=== PATIENT | male | born 1945 | race Caucasian/White ===

== ENCOUNTER 2016-08-25 03:48 | Inpatient (IN) ==
[2016-08-25] MEDS ORDERED: NS 1,000 ML IV ONE (03:53)
[2016-08-25] MEDS ORDERED: ZOFRAN IV ONE (03:53)
--- NOTE | 2016-08-25 03:58 | PROVIDER DOCUMENTATION ---
HPI-Cardiac General - General Stated Complaint: syncope Time Seen by Provider: 08/25/16 03:51 Source: patient, EMS Allergies/Adverse Reactions: Patient Allergies Allergy/AdvReac Type Severity Reaction Status Date / Time hydrocodone AdvReac NAUSEA Verified 08/25/16 03:56 tramadol AdvReac NAUSEA Verified 08/25/16 03:56 Home Medications: Albuterol [Albuterol Neb] 2.5 mg INH Q4H PRN PRN 02/20/14 Alprazolam [Xanax] 0.5 mg PO BID 02/20/14 Aspirin [[place] Aspirin] 81 mg PO DAILY 02/20/14 Lisinopril [Zestril] 20 mg PO BID 02/20/14 PRAVAstatin [Pravachol] 40 mg PO DAILY 02/20/14 Pantoprazole [Protonix] 40 mg PO DAILY 02/20/14 Tiotropium [place] Inhaler [Spiriva] 18 mcg INH DAILY 02/20/14 Amlodipine Besylate [Norvasc] 2.5 mg DAILY 07/15/15 Clopidogrel Bisulfate [Plavix] 75 mg PO DAILY 08/25/16 - History of Present Illness-Cardiac Nature of Presenting Problem: pt states he had gotten up to use the bathroom and felt nauseous and lightheaded and had an episode of diarrhea then briefly passed out. Ambulance responced and found pt pale, diaphoretic with a low BP and transported pt here. Pt denies any bloody stools/melena. He had felt well when he went to bed. He has never had anything like this happened before. Currently he states he has mild diffuse abdominal cramping. He denies headache, SOB, CP Review of Systems - Adult - REVIEW OF SYSTEMS - ADULT Constitutional: denies: chills, fever Eyes: denies: discharge, decreased vision, blurred vision Ears, Nose, Mouth & Throat: denies: ear discharge, sinus problem, throat pain Cardiovascular: reports: syncope. denies: chest pain, irregular heart rate, palpitations Respiratory: denies: cough, shortness of breath, wheezing Gastrointestinal: reports: see HPI. denies: constipation, rectal bleeding Genitourinary: denies: dysuria, frequency, flank pain Musculoskeletal: denies: back pain Integumentary: denies: rash Neurological: denies: headache/migraines, numbness, paresthesia, slurred speech All Other Systems: Reviewed and Negative Past History - Adult - PAST MEDICAL HISTORY-ADULT Review of Records: reports: Old Records Reviewed, Nursing Assessment Review, Medications Reviewed, Social history reviewed & non-contributory. Major Childhood Illnesses: reports: history unknown Cardiovascular: reports: CAD, HTN, hyperlipidemia, MA Respiratory: reports: COPD Gastrointestinal: reports: denies history Obstetrical/Gynecological: reports: denies history Genitourinary: reports: denies history Musculoskeletal: reports: denies history Neurological: reports: denies history Psychiatric: reports: denies history Endocrine/Immune: reports: denies history Other Conditions: reports: denies history - PRIOR SURGERIES/PROCEDURES Surgical/Procedure History: reports: appendectomy - PRIOR HOSPITALIZATIONS Prior Hospitalizations: reports: none - IMMUNIZATION STATUS Childhood Immunizations: See Nurse Assessment Flu Vaccine: See Nurse Assessment - FAMILY HISTORY Family History: reviewed, not pertinent Physical Exam-General - PHYSICAL EXAM-ADULT Initial Vital Signs Reviewed: Yes - CONSTITUTIONAL General Appearance: alert, no apparent distress - EYES Eyes: pink conjunctivae. negative: scleral icterus - HEAD, EARS, NOSE, MOUTH & THROAT HENMT: normocephalic/atraumatic, pharynx normal - NECK Neck: non-tender, full range of motion, supple, normal inspection - RESPIRATORY Respiratory: chest non-tender, lungs clear, normal breath sounds, no pleuratic chest pain, no respiratory distress, no accessory muscle use - CARDIOVASCULAR Cardiovascular: regular rate, rhythm, no edema, no murmur - GASTROINTESTINAL (ABDOMEN) Abdominal Exam: normal bowel sounds, non tender, soft, no organomegaly, no pulsatile mass - MUSCULOSKELETAL Back Exam: normal inspection, no CVA tenderness, no vertebral tenderness Extremity: normal range of motion, non-tender, normal inspection, no pedal edema , no calf tenderness - SKIN Integumentary: diaphoresis, pallor - NEUROLOGIC Neurologic: alum mixer II-XII nml as tested, grossly normal, no motor/sensory deficits - PSYCHIATRIC Psych/Mental Status: normal mood/affect, normal thought content, normal thought process, oriented x 3 Progress - PLAN OF CARE/RESULTS Progress/Plan/Lab Results: Laboratory Tests 08/25/16 08/25/16 08/25/16 03:50 03:50 03:50 WBC 11.85 H RBC 5.19 Hgb 15.3 Hct 45.2 MCV 87.1 MCH 29.5 MCHC 33.8 RDW Std Deviation 14.8 H Plt Count 398 MPV 8.7 Immature Gran % (Auto) 0.3 Neut % (Auto) 58.3 Lymph % (Auto) 34.4 [place] % (Auto) 5.1 Eos % (Auto) 1.7 Baso % (Auto) 0.2 Immature Gran # (Auto) 0.04 Neut # (Auto) 6.91 H Lymph # (Auto) 4.08 H [place] # (Auto) 0.60 H Eos # (Auto) 0.20 Baso # (Auto) 0.02 Sodium 133 L Potassium 4.7 Chloride 101 Carbon Dioxide 22 L Anion Gap 10 BUN 13 Creatinine 1.3 H Estimated GFR/1.73 m2 54 BUN/Creatinine Ratio 10 Glucose 146 H Calculated Osmolality 269 Calcium 9.1 Magnesium 2.2 Total Bilirubin 0.40 AST 12 ALT 13 Alkaline Phosphatase 104 Troponin T Total Protein 6.9 Albumin 4.0 Globulin 3.0 Albumin/Globulin Ratio 1.0 Lipase 28 Stool Occult Blood 08/25/16 08/25/16 03:50 04:53 WBC RBC Hgb Hct MCV MCH MCHC RDW Std Deviation Plt Count MPV Immature Gran % (Auto) Neut % (Auto) Lymph % (Auto) [place] % (Auto) Eos % (Auto) Baso % (Auto) Immature Gran # (Auto) Neut # (Auto) Lymph # (Auto) [place] # (Auto) Eos # (Auto) Baso # (Auto) Sodium Potassium Chloride Carbon Dioxide Anion Gap BUN Creatinine Estimated GFR/1.73 m2 BUN/Creatinine Ratio Glucose Calculated Osmolality Calcium Magnesium Total Bilirubin AST ALT Alkaline Phosphatase Troponin T < 0.010 Total Protein Albumin Globulin Albumin/Globulin Ratio Lipase Stool Occult Blood POSITIVE A Orders Category Date Time Status CBC WITH ELECTRONIC DIFF [HEME] Stat Lab 08/25/16 03:50 Completed CMP [COMPREHENSIVE METABOLIC PANEL] [CHEM] Stat Lab 08/25/16 03:50 Completed LIPASE [CHEM] Stat Lab 08/25/16 03:50 Completed MAGNESIUM [CHEM] Stat Lab 08/25/16 03:50 Completed OCCULT BLOOD SCREEN STOOL PL Stat Lab 08/25/16 04:53 Completed TROPONIN T Stat Lab 08/25/16 03:50 Completed 0.9% Sodium Chloride Inj [Ns] 1,000 ml Med 08/25/16 03:53 Discontinued IV 999 mls/hr 0.9% Sodium Chloride Inj [Ns] 100 ml Med 08/25/16 05:10 Discontinued .ROUTE As Directed 0.9% Sodium Chloride Inj [Ns] 80 ml Med 08/25/16 05:15 Active Pantoprazole [Protonix] 80 mg IV 10 mls/hr Ondansetron [Zofran] Med 08/25/16 03:53 Discontinued 8 mg IV NOW ONE Pantoprazole [Protonix] Med 08/25/16 05:09 Discontinued 80 mg .ROUTE .STK-MED ONE Pantoprazole [Protonix] 80 mg Med 08/25/16 05:04 Active 0.9% Sodium Chloride Inj [Ns] 80 ml IV NOW EKG [EKG] Stat Ther 08/25/16 03:52 Ordered Vital Signs Pulse Resp BP Pulse Ox 08/25/16 04:14 56 L 17 120/68 97 08/25/16 03:49 60 23 137/94 100 hydrocodone Adverse Reaction (Verified 08/25/16 03:56) NAUSEA tramadol Adverse Reaction (Verified 08/25/16 03:56) NAUSEA Acetaminophen with Codeine [Tylenol with Codeine #3 Tablet] 1 each PO Q6H PRN PRN #30 tablet 02/20/14 Albuterol [Albuterol Neb] 2.5 mg INH Q4H PRN PRN 02/20/14 Alprazolam [Xanax] 0.5 mg PO BID 02/20/14 Aspirin [[place] Aspirin] 81 mg PO DAILY 02/20/14 Lisinopril [Zestril] 20 mg PO BID 02/20/14 PRAVAstatin [Pravachol] 40 mg PO DAILY 02/20/14 Pantoprazole [Protonix] 40 mg PO DAILY 02/20/14 Tiotropium [place] Inhaler [Spiriva] 18 mcg INH DAILY 02/20/14 Amlodipine Besylate [Norvasc] 2.5 mg DAILY 07/15/15 Meclizine HCl [Antivert] 25 mg PO TID PRN PRN #30 tablet 07/28/16 Clopidogrel Bisulfate [Plavix] 75 mg PO DAILY 08/25/16 Laboratory 08/25/16 08/25/16 08/25/16 04:53 03:50 03:50 WBC RBC Hgb Hct MCV MCH MCHC RDW Std Deviation Plt Count MPV Immature Gran % (Auto) Neut % (Auto) Lymph % (Auto) [place] % (Auto) Eos % (Auto) Baso % (Auto) Immature Gran # (Auto) Neut # (Auto) Lymph # (Auto) [place] # (Auto) Eos # (Auto) Baso # (Auto) Sodium Potassium Chloride Carbon Dioxide Anion Gap BUN Creatinine Estimated GFR/1.73 m2 BUN/Creatinine Ratio Glucose Calculated Osmolality Calcium Magnesium 2.2 Total Bilirubin AST ALT Alkaline Phosphatase Troponin T < 0.010 Total Protein Albumin Globulin Albumin/Globulin Ratio Lipase 28 Stool Occult Blood POSITIVE A 08/25/16 08/25/16 03:50 03:50 WBC 11.85 H RBC 5.19 Hgb 15.3 Hct 45.2 MCV 87.1 MCH 29.5 MCHC 33.8 RDW Std Deviation 14.8 H Plt Count 398 MPV 8.7 Immature Gran % (Auto) 0.3 Neut % (Auto) 58.3 Lymph % (Auto) 34.4 [place] % (Auto) 5.1 Eos % (Auto) 1.7 Baso % (Auto) 0.2 Immature Gran # (Auto) 0.04 Neut # (Auto) 6.91 H Lymph # (Auto) 4.08 H [place] # (Auto) 0.60 H Eos # (Auto) 0.20 Baso # (Auto) 0.02 Sodium 133 L Potassium 4.7 Chloride 101 Carbon Dioxide 22 L Anion Gap 10 BUN 13 Creatinine 1.3 H Estimated GFR/1.73 m2 54 BUN/Creatinine Ratio 10 Glucose 146 H Calculated Osmolality 269 Calcium 9.1 Magnesium Total Bilirubin 0.40 AST 12 ALT 13 Alkaline Phosphatase 104 Troponin T Total Protein 6.9 Albumin 4.0 Globulin 3.0 Albumin/Globulin Ratio 1.0 Lipase Stool Occult Blood - REASSESSMENT Reassessment #1 Time Reassessed: 04:58 (pt had another episode of diarrhea which had some BRB blood in it) Status: improving - EKG 1 Time of EKG reading by physician:: 04:05 EKG Interpretation (*Must complete 3 of following elements*): Abnormal Rate: 53 Rhythm: sinus diana [place]: normal QRS: normal DE Interval: normal ST Wave: normal Departure - Departure Time of Disposition Order: 04:58 DIAGNOSIS: Syncope Qualifiers: Syncope type: vasovagal syncope Qualified Code(s): R55 - Syncope and collapse GI bleed Qualifiers: GI bleed type/associated pathology: unspecified gastrointestinal hemorrhage type Qualified Code(s): K92.2 - Gastrointestinal hemorrhage, unspecified Disposition: ADMITTED INPATIENT 09 Certified Medical Emergency: Emergent Condition: Fair Referrals: Peri Conway [Primary Care Provider] -
[2016-08-25 04:05] LABS: MANUAL DIFF NEEDED? NO
[2016-08-25 04:24] LABS: BASO% 0.2 % (0.0-0.8); EOS% 1.7 % (0.0-10.0); HEMATOCRIT 45.2 % (42.0-52.0); HEMOGLOBIN 15.3 g/dL (14.0-18.0); IMM GRAN# 0.04 X1000 (0.0-0.04); IMM GRAN% 0.3 % (0.0-0.5); LYMPH# 4.08 X1000 (1.2-3.4); LYMPH% 34.4 % (20.5-51.1); MCH 29.5 PG (27-31); MCHC 33.8 g/dL (33-37); MCV 87.1 FL (81-99); MONO% 5.1 % (1.7-9.3); MPV 8.7 FL (7.4-10.4); NEUT% 58.3 % (42.2-75.2); PLT 398 X1000 (130-400); RBC 5.19 XMIL (4.7-6.1)
[2016-08-25 04:31] LABS: MAGNESIUM 2.2 mg/dL (1.5-2.7)
[2016-08-25 04:35] LABS: CALCIUM 9.1 mg/dL (8.8-10.2); POTASSIUM 4.7 mmol/L (3.5-5.1); TOTAL BILIRUBIN 0.4 mg/dL (0.20-1.00); TOTAL PROTEIN 6.9 g/dL (6.3-8.3)
[2016-08-25] MEDS ORDERED: PROTONIX 80 MG in NS 80 ML IV ONE (05:04)
[2016-08-25] MEDS ORDERED: PROTONIX ONE (05:09)
[2016-08-25] MEDS ORDERED: NS 200 ML ONE (05:10)
[2016-08-25] MEDS ORDERED: PROTONIX 80 MG in NS 80 ML IV SCH (05:15)
[2016-08-25 05:20] LABS: OCCULT BLOOD 1 POSITIVE (NEGATIVE)
[2016-08-25] MEDS ORDERED: MORPHINE IV ONE (05:45)
--- NOTE | 2016-08-25 05:50 | EKG Report ---
Test Performed on : 08/25/2016 04:01:48 AM Test Reason : ER12 Blood Pressure : / mmHG Vent. Rate : 053 BPM Atrial Rate : 053 BPM P-R Int : 168 ms QRS Dur : 084 ms QT Int : 442 ms P-R-T Axes : 099 078 064 degrees QTc Int : 414 ms Sinus bradycardia. Otherwise normal ECG When compared with ECG of 28-JUL-2016 14:08, T wave amplitude has decreased in Lateral leads Unconfirmed Result
[2016-08-25] MEDS ORDERED: ZOFRAN IV PRN (10:15)
[2016-08-25] MEDS ORDERED: TYLENOL PO PRN (10:15)
[2016-08-25] MEDS ORDERED: ALBUTEROL NEB INH PRN (10:19)
[2016-08-25] MEDS ORDERED: MORPHINE IV PRN (10:19)
--- NOTE | 2016-08-25 11:46 | Diag Imaging Result Document ---
PROCEDURE NAME: ABDOMEN/PELVIS W/O CONTRAST - 08/25/2016 CT UROGRAM WITHOUT CONTRAST: FINDINGS: There is no evidence of acute disease in the visualized portion of the chest. There are no apparent gallstones. There is stranding in the perinephric bases bilaterally. No evidence of hydronephrosis or stones is present. There are sclerotic calcifications in the aorta and superior mesenteric artery. There is no evidence of bowel obstruction. The appendix is surgically absent. There is a graft in the external iliac artery and common iliac artery on the right side. There is also a femoral femoral arterial graft which may or may not be patent. There is no evidence of free fluid in the pelvis. There is fluid in the distal colon. IMPRESSION: No evidence of stones or obstruction. The possibility of enterocolitis cannot be excluded.
[2016-08-25] MEDS: NS 1,000 ML IV SCH ×2 (12:00→20:43)
[2016-08-25 12:52] LABS: HEMATOCRIT 42.8 % (42.0-52.0); HEMOGLOBIN 14.1 g/dL (14.0-18.0)
[2016-08-25 13:01] LABS: INR 0.95; PROTIME 10.1 Seconds (9.2-11.7)
--- NOTE | 2016-08-25 14:07 | HISTORY AND PHYSICAL ---
PRIMARY CELL TENDER HELPER: . PRIMARY LABORATORY SECRETARY: Dr. Elias in [place] who he has an appointment with next Sunday. PRIMARY CELL TENDER HELPER: Dr. Castaneda. CHIEF COMPLAINT: Stomach cramps, passing out, and bloody diarrhea. HISTORY OF PRESENT ILLNESS: Mr. Anil Edmond is a 71-year-old male with a history of peripheral arterial disease who has had subclavian stent, cardiac stent, and femoral bypass, history of coronary artery disease with heart attack and cardiac stent placement 3 years ago, hypertension, hyperlipidemia, COPD on no home O2, borderline diabetes, GERD who, apparently, at 3 a.m., was awakened by stomach cramps and felt like he had to have a bowel movement. He states he had a bowel movement that he felt was brown. He got nauseated and lightheaded, so, he stopped straining. He got up to go to the bedroom and passed out. He states he did not hit his head but, when he came back to, he was slightly disoriented at first, sweaty, and clammy. His called EMS. When they arrived, per the patient, his blood pressure was a little low. They took him to [place] and, since [place] to here, he has had 3 bloody bowel movements. No more syncope noted. Upon assessment, his 1st EKG at [place] showed a heart rate of 53, sinus bradycardic, but his first blood pressure was 137/94 and 100% on room air. They did a stool for occult blood and it was positive. They started him on a Protonix drip and transferred him here. We have sent him for abdominopelvic CT and for an echocardiogram to evaluate heart function. Will do serial hemoglobin and hematocrits and consult gastroenterology. He states that his last EGD and colonoscopy was about 3 or [address] Castaneda. Vital signs are stable at this time. Hemoglobin and hematocrit stable at 15 and 45 and platelet count stable at 398,000. Will admit to the ICU given his bloody bowel movements of bright red and that he did have 1 syncopal episode. PAST MEDICAL HISTORY: Coronary artery disease with myocardial infarction and a cardiac stent placed 3 years ago. Hypertension. Hyperlipidemia. COPD on no home O2. Borderline diabetes. GERD. Easily bruised. Peripheral arterial disease and an old L2 compression fracture. PAST SURGICAL HISTORY: 1. Left subclavian stent 3-4 years ago. 2. Left femoral-popliteal bypass 5 to 6 years ago. 3. Cardiac stent 3 years ago. 4. Appendectomy. 5. Left leg rods and plates in 2010 from a fall at work. 6. EGD, colonoscopy 3-4 years ago. SOCIAL HISTORY: He quit smoking 1 week ago. He smoked 6 cigarettes per day, or a 4th pack per day on and off for 30 years. Denies alcohol. Denies illicit drug use. He is retired and lives at home with his . FAMILY HISTORY: Father had coronary artery disease and diabetes. Mother had TB. REVIEW OF SYSTEMS: Fourteen point review of systems were complete and all were negative except for those mentioned above in HPI. ALLERGIES: Hydrocodone. Tramadol. HOME MEDICATIONS: Albuterol. Aspirin 81 daily. Zestril 20 p.o. twice daily. Pravachol 40 mg p.o. daily. Protonix 40 p.o. daily. Spiriva. Xanax 0.5 p.o. twice daily. Norvasc 2.5 daily. Plavix 75 daily. Tylenol every 6 hours as needed. Antivert 25 p.o. 3 times a day as needed. LABORATORY DATA: White blood cells 11,000. Hemoglobin 15. Hematocrit 45. Platelet count 398,000. Sodium 133. Potassium 4.7. BUN 13. Creatinine 1.3. Glucose 146. Calcium 9.1. Total bilirubin 0.4. AST 12. ALT 13. Troponin less than 0.01. Lipase 28. Stool occult blood is positive. IMAGING: EKG is all I have at this time. Other imaging is not reported. Sinus bradycardia, rate 53. PHYSICAL EXAMINATION: VITAL SIGNS: Temperature is 97 degrees. Heart rate 76. Respiratory rate 18. Blood pressure 121/61. O2 saturation 100% on 2 L. GENERAL: Mr. Edmond is a 71-year-old male, in no acute distress, able to answer all questions appropriately. HEENT: Atraumatic, normocephalic. Pupils equal, round, and reactive to light. Extraocular movements are intact. Mucous membranes are dry. NECK: No JVD or carotid bruits noted. CARDIOVASCULAR: S1, S2. Regular rate and rhythm. No rubs, gallops, murmurs. PULMONARY: Clear to auscultate. Bilateral breath sounds. No accessory muscle use or work of breathing noted. Currently on 2 L nasal cannula. GI: Soft, nontender, nondistended. Hyperactive bowel sounds x4. NEUROLOGIC: Alert and oriented x4. Moves all extremities equally. EXTREMITIES: No edema noted, +2 dorsalis pedal pulses and radial pulses. SKIN: Warm, dry, intact. He is not pale at this time. ASSESSMENT AND PLAN: 1. Lower gastrointestinal bleed. Patient states he does not have a GI history that he knows of but has seen Dr. Castaneda 3 or 4 years ago for EGD and colonoscopy at that time. He does take Plavix and aspirin for his peripheral arterial disease and coronary artery disease. Currently, will hold those. He is on a Protonix drip. Follow up abdominopelvic CT. Carafate. GI is consulted. 2. Syncope. Will do an echocardiogram. It could be that he strained and his heart rate dropped and he had a vasovagal response. Will do orthostatic vitals and consult Cardiology if needed. 3. Chronic obstructive pulmonary disease. Continue home medications. 4. Hypertension. Hold antihypertensives. 5. Coronary artery disease with stents. Hold aspirin and Plavix. 6. Peripheral arterial disease. Again, hold aspirin and Plavix. 7. Gastroesophageal reflux disease. Continue his proton pump inhibitor. This is gastrointestinal prophylaxis also. 8. Hyperlipidemia. Holding p.o. medications for now. 9. Deep venous thrombosis prophylaxis. Will do sequential compression devices. 10. Tobacco abuse. Cessation discussed. He has quit x1 week using nicotine patches at this time. Dictated by EMELIA Bettencourt for Anam Uriostegui MD
--- NOTE | 2016-08-25 14:46 | Diag Imaging Result Document ---
PROCEDURE NAME: CHEST-2 VIEWS - 08/25/2016 CHEST, TWO VIEWS: INDICATION: Syncope. FINDINGS: The heart size is within normal limits. There is a stable vascular stent originating from the aortic arch. There is stable post-traumatic deformity of the left ribs and clavicle. There is some vague hazy density at the lung bases which may indicate atelectasis. The pulmonary vasculature is not congested. There are no effusions. There is pulmonary emphysema. IMPRESSION: 1. Possible atelectasis at the lung bases. 2. Otherwise, stable chest.
[2016-08-25] MEDS: PROTONIX 80 MG in NS 80 ML IV SCH (15:00)
--- NOTE | 2016-08-25 15:39 | ECHO REPORT ---
ORDER DATE: 08/25/2016 INTERPRETING PHYSICIAN: Dr. Mike Hensley ECHOCARDIOGRAPHIC MEASUREMENTS: Interventricular septum: 1.2 cm. Left ventricular posterior wall: 1.2 cm. Diastolic diameter: 4.1 cm. Left atrium: 3.0 cm. SUMMARY OF THE 2-DIMENSIONAL IMAGIN. Aortic valve leaflets are trileaflet, sclerosed, opening normally. Mitral valve was normal. Tricuspid valve was normal. Pulmonic valve was normal. There is trace pulmonary regurgitation. 2. Normal left ventricular cavity size. Estimated ejection fraction of 60-65%. 3. There is trace mitral regurgitation. Trace tricuspid regurgitation. Peak velocity across the tricuspid valve was 2 m/sec. Peak velocity across the aortic valve 2 m/sec. There is aortic sclerosis. There is no aortic stenosis or regurgitation. 4. There is no pericardial effusion or obvious intracardiac mass or thrombus seen. Anterior echo- free space suggestive of pericardial fat pad.
[2016-08-25 20:25] LABS: HEMATOCRIT 41.1 % (42.0-52.0); HEMOGLOBIN 13.7 g/dL (14.0-18.0)
[2016-08-25] MEDS: XANAX PO SCH (20:42)
[2016-08-26] MEDS: PROTONIX 80 MG in NS 80 ML IV SCH ×2 (02:12→12:53)
[2016-08-26] MEDS: NS 1,000 ML IV SCH ×3 (02:13→16:03)
[2016-08-26 05:09] LABS: MANUAL DIFF NEEDED? NO
[2016-08-26 05:21] LABS: BASO% 0.1 % (0.0-0.8); EOS# 0.14 X1000 (0.0-0.7); EOS% 1.5 % (0.0-10.0); HEMOGLOBIN 12.6 g/dL (14.0-18.0); IMM GRAN# 0.03 X1000 (0.0-0.04); IMM GRAN% 0.3 % (0.0-0.5); LYMPH# 2.38 X1000 (1.2-3.4); LYMPH% 25.7 % (20.5-51.1); MCHC 32.3 g/dL (33-37); MCV 89.7 FL (81-99); MONO# 0.48 X1000 (0.11-0.59); MONO% 5.2 % (1.7-9.3); MPV 8.9 FL (7.4-10.4); NEUT% 67.2 % (42.2-75.2); PLT 300 X1000 (130-400); RBC 4.35 XMIL (4.7-6.1)
[2016-08-26 05:33] LABS: INR 1.01; PROTIME 10.7 Seconds (9.2-11.7); PTT 25.7 Seconds (22.0-36.0)
[2016-08-26 06:42] LABS: AGAP 12; ALBUMIN 3.3 g/dL (3.5-5.0); ALKALINE PHOSPHATASE 84 U/L (32-122); BUN 8 mg/dL (8-22); CALCIUM 8.4 mg/dL (8.8-10.2); CHLORIDE 106 mmol/L (98-107); COSMO 278; GOT 8 U/L (10-34); GPT 9 U/L (10-44); POTASSIUM 4.2 mmol/L (3.5-5.1); SODIUM 140 mmol/L (136-145); TCO2 22 mmol/L (25-35); TOTAL BILIRUBIN 0.64 mg/dL (0.20-1.00); TOTAL PROTEIN 5.5 g/dL (6.3-8.3)
[2016-08-26] MEDS ORDERED: SPIRIVA INH SCH (07:30)
[2016-08-26] MEDS: XANAX PO SCH (09:11)
[2016-08-26 12:56] LABS: HEMATOCRIT 40.7 % (42.0-52.0); HEMOGLOBIN 13.3 g/dL (14.0-18.0)
[2016-08-26 15:55] VITALS: BP 144/65
--- NOTE | 2016-08-26 17:37 | PROGRESS NOTE ---
DATE: 08/26/2016 DIAGNOSES LEADING TO HOSPITALIZATION: 1. Lower GI bleed. 2. Syncope. 3. Chronic obstructive pulmonary disease. 4. Hypertension. 5. History of coronary artery disease with stents. 6. Peripheral artery disease. 7. Gastroesophageal reflux disease. 8. Hyperlipidemia. 9. Tobacco abuse. DISCHARGE DIAGNOSES: 1. Diarrhea. 2. Questionable lower bleed with negative occult blood in the stools. 3. Syncope. 4. History of COPD. 5. Hypertension. 6. History of coronary artery disease with stents number next peripheral artery disease. 7. Gastroesophageal reflux disease. 8. Hyperlipidemia. 9. Tobacco abuse. CONSULTS: Gastroenterology department. [facility]: 71-year-old male with a history of peripheral artery disease who has had subclavian stent, cardiac stent and femoral bypass, history of coronary artery disease with heart attack and cardiac stent placement 3 years ago, hypertension, hyperlipidemia, COPD, borderline diabetes, GERD, apparently at 3 a.m. the day of admission was having stomach cramps and went to the bathroom. He had a bowel movement that was brown after that but he is not sure. After that he was nauseated and lightheaded, and then he passed out. When he came back to he was slightly disoriented 1st, sweaty and clammy. His called EMS and they realized that the blood pressure was low. They took him to [place] and apparently he had 3 bloody bowel movements over there. No more syncope noted, upon assessment his 1st EKG at [place] showed a heart rate of 53, sinus bradycardic, but his 1st blood pressure was 137/94 and 100% on room air. Apparently stool study for blood was positive and they started this patient on Protonix and transferred to this hospital, [facility]. This patient was evaluated by Gastroenterology. He has been having diarrhea since admission, I never saw blood and he told me that he his bowel movements are without blood so in light of that I ordered a new occult blood in the stool that is negative. This patient wants to go home today. He states that he is feeling better and he does not have any bowel movement with blood, the daughter is at the bedside, he told me also that he will call Dr. Nunes next Sunday to place an appointment to get a new colonoscopy and maybe an upper endoscopy. I recommended to continue with hydration and they seem to understand this information. Hemoglobin and hematocrit here has been stable and also negative occult blood in the stool. This patient will be discharged with a strict followup by his primary care doctor, his senior graduate advisor, and also he will ask for an appointment with Dr. Nunes next Sunday, the daughter is at the bedside and she told me that they will do that. Since I have these results of the occult blood in the stool that is negative and I asked this patient if he saw blood in his stools and he does not remember that, he thinks that his stools are okay, we talked about his medications. He is on anticoagulation, for now I will not stop that because this patient is a high risk for a vascular event. He had a subclavian stent cardiac stent femoral bypass as well. I told them also that he if he has any new symptoms or if he has a bowel movement with blood to come back to the emergency department. He also understood that and he told me that his is a nurse and she will be taking care of him. The main reason why this patient wants to go home is because he did not see blood and he feels fine. I will not stop any medications for now. OBJECTIVE: Vital signs: Temperature 97.6 degrees, pulse 52, respiratory rate 15 blood pressure 144/65, O2 saturations 98% on 2 L of nasal cannula. HEENT: Head normocephalic. No trauma. PERRLA. Neck: Supple. No JVD. No masses. Chest: Clear to auscultation. No wheezing. No rales. Abdomen: Soft, nontender, nondistended. No hepatosplenomegaly. Cardiovascular: RRR. No murmurs. No gallops. No rubs. Extremities: No edema. No clubbing. No cyanosis. Neurological examination: Patient is alert and oriented x3. No focal neurological deficits. LABORATORY: WBC 9.2, hemoglobin 13.3, hematocrit 40.7, platelets 300,000, sodium 140, potassium 4.2, chloride 106, bicarbonate 22, BUN 8, creatinine 1.1, glucose 97, calcium 8.4, albumin 3.3. DISCHARGE MEDICATION: Aspirin 81 mg p.o. daily, Cefzil 20 mg p.o. twice a day, Pravachol 40 mg p.o. daily, Protonix 40 mg p.o. daily, Spiriva, Xanax 0.5 mg p.o. twice a day, Norvasc 2.5 mg p.o. daily, Plavix 75 mg p.o. daily, Tylenol p.r.n., Antivert 25 mg p.o. 3 times a day as needed. FOLLOWUP: Follow up by his primary care physician in one week. Follow up by his senior graduate advisor next available appointment. This patient will call next Sunday, to get an appointment for a possible evaluation and scope. [facility] SYSTEM[facility]riyank
--- NOTE | 2016-08-28 06:01 | EKG Report ---
Test Performed on : 08/26/2016 09:31:17 AM Test Reason : chest pain Blood Pressure : / mmHG Vent. Rate : 059 BPM Atrial Rate : 059 BPM P-R Int : 154 ms QRS Dur : 078 ms QT Int : 408 ms P-R-T Axes : 000 087 059 degrees QTc Int : 403 ms Poor data quality, interpretation may be adversely affected Sinus bradycardia. Otherwise normal ECG When compared with ECG of 25-AUG-2016 04:01, (Unconfirmed) No significant change was found Unconfirmed Result
== END 2016-08-26 18:30 | disposition home or self-care (01) | DRG 312 ==
LOC: P.ED 03:48 → EDIPHOLD 06:41 → 3S 13:35
PROVIDERS: ATTEND Internal Medicine
DX: R55 Syncope and collapse (principal); J44.9 Chronic obstructive pulmonary disease, unspecified; I10 Essential (primary) hypertension; I25.10 Atherosclerotic heart disease of native coronary artery without angina pectoris; K21.9 Gastro-esophageal reflux disease without esophagitis; E78.5 Hyperlipidemia, unspecified; I73.9 Peripheral vascular disease, unspecified; Z79.899 Other long term (current) drug therapy; Z79.82 Long term (current) use of aspirin; Z79.02 Long term (current) use of antithrombotics/antiplatelets; Z95.5 Presence of coronary angioplasty implant and graft; I25.2 Old myocardial infarction; Z87.891 Personal history of nicotine dependence; Z83.3 Family history of diabetes mellitus; Z82.49 Family history of ischemic heart disease and other diseases of the circulatory system
CPT/HCPCS: 71020; 74176; 80053; 82270; 82550; 82948; 83690; 83735; 84443; 84484; 85014; 85018; 85025; 85610; 85730; 86850; 86900; 86901; 93005; 93306; 94640; 94761; 96361; 96365; 96366; 96375; C9113; J2270; J2405; J7030; S0164